=== PATIENT | female | born 1985 | race African-American/Black ===

== ENCOUNTER 2022-05-13 20:35 | Emergency (ER) | payer SELFPAY ==
[~2022-05-13] VITALS: Ht 152.4 cm; Wt 90.3 kg
[2022-05-13 21:40] LABS: CLARITY URINE TURBID (CLEAR); COLOR URINE RED (YELLOW); KETONES URINE NEGATIVE (NEGATIVE); LEUKOCYTE ESTERASE URINE 1+ (NEGATIVE); NITRITE URINE NEGATIVE (NEGATIVE); OCCULT BLOOD URINE 3+ (NEGATIVE); PH URINE 7.5 (4.5-8.0); PROTEIN URINE 1+ (NEGATIVE); SPECIFIC GRAVITY URINE 1.012 (1.005-1.030); UROBILINOGEN URINE 0.2 E.U./dL (0.2-1.0)
[2022-05-13] MEDS ORDERED: LABETALOL HCL 100MG TABLET PO ONE (22:00)
[2022-05-13] MEDS: ACETAMINOPHEN 325MG TABLET PO PRN (22:33)
[2022-05-13 22:51] LABS: BASOPHILS % 0.6 % (0.0-2.0); EOSINOPHILS % 0.5 % (0.0-5.0); HEMATOCRIT. 32.7 % (36.0-48.0); MEAN CORPUSCULAR HEMOGLOBIN 18.1 pg (28.0-32.0); MEAN CORPUSCULAR VOLUME 59.5 fL (81.0-99.0); MEAN PLATELET VOLUME 8.8 fl (7.4-10.4); MONOCYTES % 5.8 % (2.0-8.0); NEUTROPHILS % 78.1 % (40.0-76.0); PLATELET 310 x1000/uL (130-400); RED CELL DISTRIBUTION WIDTH 20.4 % (11.6-14.6)
[2022-05-13 22:58] LABS: CHLORIDE 102 mEq/L (98-107)
[2022-05-13 23:07] LABS: B-HCG QUANTITATIVE 16 mIU/mL (<3)
[2022-05-13 23:12] VITALS: BP 142/76
[2022-05-13 23:22] LABS: PLATELET ESTIMATE NORMAL
[2022-05-13] MEDS ORDERED: LABE100T9 MT (23:26)
[2022-05-13] MEDS ORDERED: NITR-87 MT (23:26)
[2022-05-14] MEDS: ACETAMINOPHEN 325MG TABLET PO PRN (00:10)
== END 2022-05-14 01:41 | disposition home or self-care (01) ==
LOC: ER 20:35
DX: O20.0 Threatened abortion (principal); Z3A.01 Less than 8 weeks gestation of pregnancy; O23.31 Infections of other parts of urinary tract in pregnancy, first trimester; I10 Essential (primary) hypertension; Z88.0 Allergy status to penicillin
CPT/HCPCS: 36415; 76801; 80053; 81003; 81025; 84702; 85025; 86850; 86900; 99284